=== PATIENT | female | born 1985 ===

== ENCOUNTER 2017-10-12 13:23 | Emergency (ER) | payer BC ==
[2017-10-12 13:38] VITALS: BMI 23.8
[2017-10-12] MEDS ORDERED: Sodium Chloride 0.9% 1,000 ML IV ONE (13:55)
[2017-10-12] MEDS ORDERED: Sodium Chloride 0.9% 1,000 ML ONE (14:12)
--- NOTE | 2017-10-12 14:24 | C.PDOC ---
History Of Present Illness 32 year old female presents to the ED complaining of headache since yesterday. Patient states that yesterday she was sitting out in the hot sun for several hours and thinks she got overheated; headache began soon after. Upon waking up today, the headache persisted and she took Advil without improvement. Patient also reports some joint pain, nausea, fatigue, and urinary frequency. Otherwise denies cough, abdominal pain, nausea/vomiting, neck pain, fever. LMP was 09/23. Time Seen by Provider: 10/12/17 13:42 Chief Complaint (Nursing): Flu-like Symptoms History Per: Patient History/Exam Limitations: no limitations Onset/Duration Of Symptoms: Days Current Symptoms Are (Timing): Still Present Severity: Mild Past Medical History Reviewed: Historical Data, Nursing Documentation, Vital Signs Vital Signs: Last Vital Signs Temp 98.9 F 10/12/17 15:41 Pulse 76 10/12/17 15:41 Resp 20 10/12/17 15:41 BP 107/64 10/12/17 15:41 Pulse Ox 98 10/12/17 15:41 - Medical History PMH: No Chronic Diseases Surgical History: No Surg Hx Family History: States: No Known Family Hx - Social History Hx Tobacco Use: No Hx Alcohol Use: No Hx Substance Use: No - Immunization History Hx Tetanus Toxoid Vaccination: No Hx Influenza Vaccination: No Hx Pneumococcal Vaccination: No Review Of Systems Constitutional: Positive for: Malaise, Other (Fatigue). Negative for: Fever Cardiovascular: Negative for: Chest Pain Respiratory: Negative for: Cough, Shortness of Breath Gastrointestinal: Positive for: Nausea. Negative for: Vomiting, Diarrhea Genitourinary: Positive for: Frequency Neurological: Positive for: Headache Physical Exam - Physical Exam Appears: Well, Non-toxic, No Acute Distress Skin: Normal Color, Warm, Dry, No Rash Eye(s): bilateral: Normal Inspection Oral Mucosa: Moist Neck: Supple, Other (no meningismus ) Cardiovascular: Rhythm Regular Respiratory: Normal Breath Sounds, No Rales, No Rhonchi, No Wheezing Gastrointestinal/Abdominal: Normal Exam, Bowel Sounds, Soft, No Tenderness Extremity: Bilateral: Atraumatic, Normal Color And Temperature, Normal ROM Neurological/Psych: Oriented x3, Normal Speech, Normal Cognition, Normal Cranial Nerves, No Cerebellar Signs, Normal Motor, Normal Sensation Gait: Steady ED Course And Treatment O2 Sat by Pulse Oximetry: 100 (RA) Pulse Ox Interpretation: Normal Progress Note: Patient given IV NS bolus + PO tylenol. UA and Upreg POC ordered and reviewed. Reevaluation Time: 15:15 Reassessment Condition: Improved (Patient reassessed, states she feels better after medication as IV fluids. Patient is comfortable being discharged home, was instructed to drink plenty of fluids and to follow up with PMD/clinic in 1- 2 days. She understands she should return to ED if symptoms worsen.) Disposition Counseled Patient/Family Regarding: Diagnosis, Need For Followup - Disposition Referrals: [facility] [Outside] Disposition: HOME/ ROUTINE Disposition Time: 15:15 Condition: STABLE Additional Instructions: DRINK PLENTY OF FLUIDS USE IBUPROFEN OR TYLENOL NEEDED RETURN TO ER IF SYMPTOMS WORSEN FOLLOW UP WITH YOUR DOCTOR/CLINIC IN 1-2 DAYS Instructions: Heat Exhaustion and Heat Stroke (DC) Print Language: SPANISH - Clinical Impression Clinical Impression: Headache, Body aches, Heat exhaustion - Scribe Statement The provider has reviewed the documentation as recorded by the Scribe (Alma Acosta) Provider Attestation: All medical record entries made by the Scribe were at my direction and personally dictated by me. I have reviewed the chart and agree that the record accurately reflects my personal performance of the history, physical exam, medical decision making, and the department course for this patient. I have also personally directed, reviewed, and agree with the discharge instructions and disposition.
[2017-10-12 15:22] LABS: SQUAMOUS EPITHIAL < 1 /hpf (0-5); URINE BILIRUBIN NEGATIVE (NEGATIVE); URINE BLOOD NEGATIVE (NEGATIVE); URINE CLARITY Clear (Clear); URINE COLOR Colorless (YELLOW); URINE GLUCOSE (UA) NORMAL (Normal); URINE LEUKOCYTE ESTERASE NEG Leu/uL (Negative); URINE PROTEIN NEGATIVE (NEGATIVE); URINE UROBILINOGEN NORMAL mg/dL (0.2-1.0)
[2017-10-12 15:43] VITALS: BP 107/64; PULSE 76; RESP 20; TEMP 98.9
[2017-10-14 13:39] VITALS: O2SAT 100
== END 2017-10-12 15:43 | disposition home or self-care (01) ==
LOC: C.ER 13:23
DX: T67.5XXA Heat exhaustion, unspecified, initial encounter (principal); X32.XXXA Exposure to sunlight, initial encounter; R52 Pain, unspecified; R51 Headache
CPT/HCPCS: 81001; 96360; 99285; J7030